=== PATIENT | male | born 1990 | race Caucasian/White ===

== ENCOUNTER 2017-06-10 09:14 | Day surgery (SDC) | payer OTHER ==
[2017-06-09 08:45] VITALS: BMI 22.9
[2017-06-10] MEDS ORDERED: CEFAZOLIN 1 GM, Syringe 2.5 ML in Sterile Water 7.5 ML SLOW IVP SCH (10:30)
[2017-06-10] MEDS ORDERED: Bupivacaine/Epinephrine 0.25% 30 ML VIAL ONE (11:36)
[2017-06-10] MEDS ORDERED: Fentanyl 100 MCG/2 ML VIAL ONE ×3 (12:01→15:14)
[2017-06-10] MEDS ORDERED: Lidocaine 1% PF 5 ML VIAL ONE (16:01)
[2017-06-10] MEDS ORDERED: Propofol 200 MG/20 ML VIAL ONE (16:01)
[2017-06-10] MEDS ORDERED: Dexamethasone 20 MG/5 ML VIAL ONE (16:01)
[2017-06-10] MEDS ORDERED: Ondansetron HCl/PF 4 MG/2 ML Vial ONE (16:01)
[2017-06-10] MEDS ORDERED: Ketorolac Tromethamine 30 MG/ML VIAL ONE (16:01)
--- NOTE | 2017-06-10 19:14 | OP ---
DATE OF PROCEDURE: 06/10/2017 PREOPERATIVE DIAGNOSES: Left elbow ulnar collateral ligament tear, left elbow osteophyte and loose b odies. POSTOPERATIVE DIAGNOSES: 1. Left elbow ulnar collateral ligament tear. 2. Left elbow posterior medial olecranon osteophyte. 3. Left elbow posterior compartment loose body. PROCEDURES: 1. Examination under anesthesia with diagnostic arthroscopy. 2. Open direct repair of the ulnar collateral ligament using an internal brace. 3. Arthroscopic excision of loose body and posterior medial olecranon osteophytes. ANESTHESIA: General. SURGEON: Danny Verde M.D. TOURNIQUET TIME: 78 minutes. ESTIMATED BLOOD LOSS: Minimal. DRAINS: None. COMPLICATIONS: None. TRAIN CONTROLLER: Frank Chow PA-C TECHNIQUE: Following induction of general anesthesia, the patient was placed supine on the operating table. Left elbow had a pneumatic tourniquet applied and left elbow was prepped and draped in steri le fashion for surgery. After exsanguination of the elbow, tourniquet inflated to 250 mmHg. An arth roscope was inserted into the anterior medial and anterolateral portals were established. The anteri or compartment had normal articular cartilage. There was noted to be osteophyte on the anterior aspe ct of the humerus that was debrided using a motorized shaver. Arthroscope was inserted through the p osterior lateral portal in the posterior compartment. There was noted be large osteophytes on the ol ecranon fossa that was debrided using a motorized shaver and motorized bur through a direct posterior portal. There was also noted to be loose bodies and osteophytes on the tip of the olecranon that we re debrided using a motorized shaver and motorized bur. There were no other loose bodies or osteophy sophie noted in the medial gutter. The arthroscopic equipment was removed. A 6 cm incision made on the medial aspect of the elbow beginning just proximal to the medial epicondyle extending distally, subc utaneous tissue after careful blunt dissection, subcutaneous vessels and nerves were identified and p rotected. The flexor pronator muscle mass was about arthropathy between the flexor carpi ulnaris and the common flexor tendon. The submuscular layer was carefully bluntly dissected exposing the ulnar collateral ligament. It was divided sharply from the medial epicondyle distally to the sublime tuber nitza of ulna, there was noted to be complete disruption and detachment of the UCL from the sublime tub ercle of ulna. The anterior and posterior leaves were noted to have good substance. The 2.7 mm dril l bit was placed. We used to put the drill tunnel in the sublime tubercle of ulna approximately 8 mm distal to the joint. A 3.5 mm PEEK SwiveLock anchor was placed into this drill tunnel. It had opal ched to a #2 Fiber tape suture that was collagen coated. The elbow was then held in 30 degrees of fl exion. The match-e[place]be[place]wish band UCL was repaired together using multiple interrupted [id number] #2 FiberWire sutures with excellent fixation and imbrication of the match-e-be-nash-she-wish band UCL. A FiberTape suture was then place d over the superficial aspect of the UCL repair. A 3.7 mm drill bit was used to create a drill tunne l in the medial epicondyle of the humerus extending along the medial column. It was tapped using a 4 .5 mm tap. A 4.75 mm PEEK SwiveLock anchor was then utilized. The two free suture limbs from the in ternal brace and FiberTape suture were placed through the tip of the anchor. The anchor was then edgardo ana in the medial epicondyle tunnel with the elbow held in 60 degrees of flexion. The tape was tensi oned, but not over tightened and the anchor was secured in the medial epicondyle tunnel completing th e repair. Elbow was stable through a full range of motion. There are symmetric points on the fixati on were excellent. There was excellent tension on the internal brace without over tightening. The w ound was then copiously irrigated. The flexor pronator muscle mass closed using multiple interrupted 2-0 Vicryl suture, subcutaneous tissues were closed using 2-0 Vicryl. Steri-Strips applied to the s kin. A large compressive sterile dressing was applied. The patient tolerated procedure well and was taken to recovery room in stable condition. ADDENDUM: Use of a physician's procurement assistant was necessary in this case for appropriate elbow positionin g during the UCL repair and reconstruction and for positioning during the arthroscopic procedure rosita ving the osteophytes and loose bodies in the elbow. The physician's procurement assistant stayed throughout the procedure, assisting with closure and application of postop dressing.
== END 2017-06-10 16:15 | disposition home or self-care (01) ==
LOC: SDC 09:14
PROVIDERS: ATTEND Orthopaedic Surgery Sports Medicine
PROC: 0RCM4ZZ Extirpation of Matter from Left Elbow Joint, Percutaneous Endoscopic Approach (ICD-10-PCS; principal; 2017-06-10)
PROC: 0XQC0ZZ Repair Left Elbow Region, Open Approach (ICD-10-PCS; principal; 2017-06-10)
DX: S53.442A Ulnar collateral ligament sprain of left elbow, initial encounter (principal); M25.722 Osteophyte, left elbow; M24.022 Loose body in left elbow; Z79.2 Long term (current) use of antibiotics; Z88.6 Allergy status to analgesic agent; Z88.5 Allergy status to narcotic agent; Z98.890 Other specified postprocedural states
CPT/HCPCS: A4216; J0690; J1100; J1885; J2001; J2405; J2704; J3010

== ENCOUNTER 2017-07-22 12:02 | Day surgery (SDC) | payer OTHER ==
[2017-07-21 13:26] VITALS: BMI 22.9
[2017-07-22] MEDS ORDERED: Bupivacaine/Epinephrine 0.25% 30 ML VIAL ONE (12:19)
[2017-07-22] MEDS ORDERED: CEFAZOLIN/Water 2 GM/20 ML SYRINGE ONE (12:31)
[2017-07-22] MEDS ORDERED: Midazolam HCl 2 mg/2 ml Vial ONE (13:34)
[2017-07-22] MEDS ORDERED: Fentanyl 100 MCG/2 ML VIAL ONE ×3 (13:34→16:33)
[2017-07-22] MEDS ORDERED: Lidocaine 1% PF 5 ML VIAL ONE (16:52)
[2017-07-22] MEDS ORDERED: Ondansetron HCl/PF 4 MG/2 ML Vial ONE (16:52)
[2017-07-22] MEDS ORDERED: Dexamethasone 20 MG/5 ML VIAL ONE (16:52)
[2017-07-22] MEDS ORDERED: Propofol 200 MG/20 ML VIAL ONE (16:52)
[2017-07-22] MEDS ORDERED: Ketorolac Tromethamine 15 MG/ML VIAL ONE (16:52)
[2017-07-22] MEDS ORDERED: Glycopyrrolate 0.2 MG/ML 5 ML SYRINGE ONE (16:52)
[2017-07-22] MEDS ORDERED: HYDROcodone/Acetaminophen 5/325 mg Tablet ONE (17:52)
--- NOTE | 2017-07-23 00:56 | OP ---
DATE OF OPERATION: 07/22/2017 PREOPERATIVE DIAGNOSES: Right elbow loose body, right elbow osteophyte formation. POSTOPERATIVE DIAGNOSES: Right elbow loose body, right elbow osteophyte formation. PROCEDURES: 1. Examination under anesthesia with diagnostic arthroscopy. 2. Arthroscopic loose body removal. 3. Arthroscopic osteophyte excision. ANESTHESIA: General. SURGEON: Danny Verde M.D. TOURNIQUET TIME: 21 minutes. ESTIMATED BLOOD LOSS: Minimal. DRAINS: None. COMPLICATIONS: None. TECHNIQUE: Following induction of general anesthesia, the patient was placed supine on the operating table, a pneumatic tourniquet applied to the proximal arm. The right arm was then prepped and drape d in sterile fashion for surgery on the right elbow. After the elbow was prepped and draped, arthros cope was inserted through an anterior lateral portal. The elbow was supported using a overhead finge r trap traction. An anterior lateral portal was established and the elbow joint was examined. The a nterior aspect of the elbow demonstrated a large osteochondral loose body just medial to the coronoid process, it was debrided using a motorized shaver to healthy tissue. There was no remaining osteoch ondral fragment, remainder of the articular cartilage, the anterior compartment was normal. There wa s noted to be an osteophyte on the anterior aspect of the distal humerus. There was also debrided us ing a motorized shaver and motorized bur. The radial head was normal. The arthroscope was inserted into the posterior compartment and marked osteophyte formation and loose body removals. Four large l oose bodies removed from the posterior compartment. Osteophytes removed from the olecranon fossa, os teophytes removed from the olecranon tip. The medial and lateral gutters were debrided and were comp letely cleaned following arthroscopy debridement. Arthroscopic equipment was removed. The wounds cl osed using 3-0 nylon. A 20 mL of 0.5% Marcaine with epinephrine placed in the elbow. A large compre ssive sterile dressing was applied. The patient tolerated procedure well and was taken to recovery r oom in stable condition.
== END 2017-07-22 18:30 | disposition home or self-care (01) ==
LOC: SDC 12:02
PROVIDERS: ATTEND Orthopaedic Surgery Sports Medicine
PROC: 0RCL4ZZ Extirpation of Matter from Right Elbow Joint, Percutaneous Endoscopic Approach (ICD-10-PCS; principal; 2017-07-22)
PROC: 0RBL4ZZ Excision of Right Elbow Joint, Percutaneous Endoscopic Approach (ICD-10-PCS; principal; 2017-07-22)
DX: M24.021 Loose body in right elbow (principal); M25.721 Osteophyte, right elbow; Z88.5 Allergy status to narcotic agent; Z98.890 Other specified postprocedural states
CPT/HCPCS: 96374; J1885; J1100; J2001; J2250; J2405; J2704; J3010

== ENCOUNTER 2017-12-27 21:26 | Emergency (ER) | payer OTHER ==
[2017-12-27] MEDS ORDERED: Proparacaine 0.5% Opth 15 ML BOT ONE (21:38)
[2017-12-27] MEDS ORDERED: Fluorescein Opthalmic Strip ONE (21:38)
== END 2017-12-27 23:27 | disposition home or self-care (01) ==
LOC: ERS 21:26
DX: S05.01XA Injury of conjunctiva and corneal abrasion without foreign body, right eye, initial encounter (principal); H20.9 Unspecified iridocyclitis; F90.9 Attention-deficit hyperactivity disorder, unspecified type; X58.XXXA Exposure to other specified factors, initial encounter; Y92.096 Garden or yard of other non-institutional residence as the place of occurrence of the external cause
CPT/HCPCS: 99283